=== PATIENT | female | born 1985 | race American Indian/Alaskan Native ===

== ENCOUNTER 2020-10-11 05:43 | Inpatient (IN) | payer MEDICAID ==
[~2020-10-11 05:43] MED LIST: BICITRA ORAL LIQD 30ML PO ONE; FAMOTIDINE 20 MG/2 ML INJ IV ONE; LACTATED RINGERS 1,000 ML IV SCH; METOCLOPRAMIDE 10 MG/2 ML INJ IV ONE
[2020-10-11] MEDS ORDERED: LACTATED RINGERS 2,000 ML ONE (05:57)
[2020-10-11 06:22] LABS: Basophils % (Auto) 0.3 % (0.0-1.8); Eosinophils # (Auto) 0.1 K/mm3 (0.0-0.4); Eosinophils % (Auto) 0.8 % (0.0-4.3); Hematocrit 26.3 % (30.3-42.9); Hemoglobin 8.4 gm/dl (10.1-14.3); Lymphocytes # (Auto) 3.6 K/mm3 (1.2-5.4); Lymphocytes % (Auto) 28.5 % (13.4-35.0); Mean Corpuscular HGB Conc 32 % (30-34); Mean Corpuscular Volume 75 fl (79-97); Monocytes # (Auto) 0.7 K/mm3 (0.0-0.8); Monocytes % (Auto) 5.8 % (0.0-7.3); Platelet Count 256 K/mm3 (140-440)
[2020-10-11] MEDS ORDERED: NalbUPHINE 10 MG/1 ML INJ IV PRN (06:48)
[2020-10-11] MEDS ORDERED: PROMETHAZINE 25 MG RECT SUPP PR PRN (06:48)
[2020-10-11] MEDS ORDERED: HYDROmorphone 1 MG/1 ML INJ IV PRN (06:48)
[2020-10-11] MEDS ORDERED: ONDANSETRON 4 MG/2 ML INJ IV PRN ×2 (06:48→12:00)
[2020-10-11] MEDS ORDERED: PROMETHAZINE 25 MG TAB PO PRN (06:48)
[2020-10-11] MEDS ORDERED: diphenhydrAMINE 50 MG/ML VIAL IV PRN (06:48)
[2020-10-11] MEDS ORDERED: NALOXONE 0.4 MG/1 ML INJ IV PRN ×2 (06:48→12:00)
--- NOTE | 2020-10-11 06:50 | Ultrasound Report ---
US OB limited INDICATION: Assess position. COMPARISON: None available. FINDINGS/IMPRESSION: A single live intrauterine is seen in transverse presentation with the head to the maternal left side. heart rate is 143 bpm. Signer Name: Tr Rodrigues MD Signed: 10/11/2020 6:46 AM Workstation Name: [id number]
[2020-10-11] MEDS ORDERED: ceFAZolin/Water 2 GM/20 ML 2 GM/20 ML SYRINGE IV NR (07:15)
--- NOTE | 2020-10-11 07:26 | Anesthesia Consultation ---
Anesthesia Consult and Med Hx Date of service: 10/11/20 - Airway Anesthetic Teeth Evaluation: Good ROM Head & Neck: Adequate Mental/Hyoid Distance: Adequate Mallampati Class: Class II Intubation Access Assessment: Probably Good - Pulmonary Exam CTA: Yes - Cardiac Exam Cardiac Exam: RRR - Pre-Operative Health Status ASA Pre-Surgery Classification: ASA2 Proposed Anesthetic Plan: Spinal Nerve Block: TAP - Pulmonary Hx Smoking: Yes (former) Hx Asthma: No COPD: No Hx Pneumonia: No Hx Sleep Apnea: No - Cardiovascular System Hx Hypertension: No Hx Heart Attack/AMI: No Hx Angina: No - Central Nervous System Hx Seizures: No Hx Psychiatric Problems: No - Endocrine Hx Renal Disease: No Hx End Stage Renal Disease: No Hx Hypothyroidism: Yes (takes synthroid BID) Hx Hyperthyroidism: No - Hematic Hx Anemia: Yes Hx Sickle Cell Disease: No - Other Systems Hx Alcohol Use: No
--- NOTE | 2020-10-11 07:26 | Anesthesia Day of Surgery ---
Anesthesia Day of Surgery - Day of Surgery Patient Examined: Yes Patient H&P Reviewed: Yes Patient is NPO: Yes Beta Blockers: No Cardiac Clearance: No Pulmonary Clearance: No Dorian's Test: N/A
[2020-10-11] MEDS ORDERED: BUPIVACAINE/PF (0.5%) 5 MG/1 ML 30 ML VIAL INFILTRATI ONE (07:27)
[2020-10-11] MEDS ORDERED: KETOROLAC 30 MG/1 ML INJ ONE (07:27)
[2020-10-11] MEDS ORDERED: ONDANSETRON 4 MG/2 ML INJ ONE (07:27)
[2020-10-11] MEDS ORDERED: dexAMETHasone 20 MG/5 ML VIAL ONE (07:28)
[2020-10-11] MEDS ORDERED: ceFAZolin/STERILE WATER 2 GM/20 ML SYRINGE IV ONE (07:35)
[2020-10-11] MEDS ORDERED: WATER FOR IRRIG STERILE 1,500 ML BOTTLE IR ONE (08:03)
[2020-10-11] MEDS ORDERED: SODIUM CHLORIDE 0.9% IRR 1,500 ML BOTTLE IR ONE (08:03)
[2020-10-11] MEDS ORDERED: OXYTOCIN DRIP 30 UNITS/500 ML BAG IV SCH ×2 (08:15→12:00)
[2020-10-11] MEDS ORDERED: SODIUM CHLORIDE 0.9% 500 ML 500 ML IV NR (08:20)
[2020-10-11] MEDS ORDERED: LACTATED RINGERS 1,000 ML ONE (08:36)
[2020-10-11] MEDS ORDERED: SODIUM CHLORIDE 0.9% 500 ML 500 ML ONE (08:36)
[2020-10-11] MEDS ORDERED: PHENYLEPHRINE/NS 1,000 MCG/10 ML SYRINGE (OR USE) IV ONE (08:36)
[2020-10-11] MEDS: methIMAzole 5 MG TAB PO SCH ×3 (09:18→23:36)
--- NOTE | 2020-10-11 09:18 | Progress Note ---
Regional Anesthesia Block - Regional Anesthesia Block Start Time: 08:58 Stop Time: 09:05 Performed By:: SHERRY FUENTES Procedure: Patient consented for TAP block for post surgical pain management. Patient identified, monitors placed, and time out performed. Mid axillary TAP identified bilaterally via ultrasound. Skin prepped bilaterally with [chlorhexidine] and [20g stimuplex] needle advanced to the TAP. 30ml [Marcaine 0.25% with 25mcg Pre cedex and Decadron 5mg] injected under ultrasound guidance on the [left] side. 30ml [Marcaine 0.25% with 25mcg Precedex and Decadron 5mg] injected under ultrasound guidance on the [right] side. Negative aspiration every 5mL, Patient tolerated the procedure well. No apparent complications seen.
--- NOTE | 2020-10-11 09:18 | Progress Note ---
Spinal Anesthesia Block - Spinal Anesthesia Block Start Time: 07:35 Stop Time: 07:45 Performed by:: SHERRY FUENTES Procedure: Spinal anesthesia block is being performed for [C/S]. H&P, labs have been reviewed. Patient's questions and concerns have been answered. Informed consent has been performed. Timeout has was performed. Patient in sitting position on side of bed. Sterile prep and drape was performed. 3 mL 1% lidocaine skin wheal at L [3]-L [4]. Needle introducer advanced. 25-gauge spinal needle advanced, [+] CSF [-] blood. [Marcaine 10mg and Precedex 5mcg] Spinal dose was given. All needles removed. Patient tolerated procedure well.
[2020-10-11] MEDS ORDERED: WITCH HAZEL/ GLYCERIN PAD TP PRN (11:30)
[2020-10-11] MEDS ORDERED: LANOLIN/ZINC/DIMETHICONE (LANSINOH) 7 GM TP PRN (12:00)
[2020-10-11] MEDS ORDERED: HYDROcodone/ACETAMINOPHEN 5-325 MG TAB PO PRN ×2 (12:00→16:36)
--- NOTE | 2020-10-11 13:11 | History and Physical Report ---
History of Present Illness Date of examination: 10/05/20 History of present illness: Is a patient transferred to our practice at 38 weeks for first visit to discover the the fetus was in breech presentation. Patient's course has been complicated by her lack of care in the last 2 months with her moving to this area. Initially the patient did not inform me about her hyper thyroidism that was diagnosed during her this was discovered when reviewing her records from her previous physician. Patient was noncompliant with her follow- up visit on last week. Is here today for delivery at 38 weeks with a malpresentation. Menstrual History Regularity: regular Menses every: 28 days Duration: 3 LMP: 01/12/2020 LMP reliability: definite LMP character: normal test type: urine test Date: 02/04/2020 Planned ? yes EDC Calculations LMP: 10/18/2020 EDC Confirmation: 10/18/2020 G Past History : 2 Term Births: 1 Premature Births: 0 Living Children: 1 Para: 1 Mult. Births: 0 Prev : 0 Aborta: 0 Elect. Ab: 0 Spont. Ab: 0 Ectopics: 0 # 1 Delivery date: 08/05/2010 Weeks Gestation: 41 Delivery type: Hours of labor: 16 Delivery location: [place] Sex: Male weight: 7-12 Name: Anupam Past Medical History: Hyperthyroidism Past Surgical History: Appendectomy (2005) ruptured laparotomy Family History Summary: Other Family Member - Has No Family History of Ovarvian Cancer - Entered On: 10/05/2020 Other Family Member - Has No Family History of Colon Cancer - Entered On: 10/05/2020 Other Family Member - Has No Family History of Breast Cancer - Entered On: 10/05/2020 Other Family Member - Has Family History of Hypertension - Entered On: 10/05/2020 Social History: Marital Status: Single Children: 1 Occupation: Unemployed [employer] Smoking History: Patient has never smoked. 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 Infection History Hx of STD: none HIV Risk Eval: no Hepatitis B Risk Eval: low risk Personal hx. of genital herpes: no Genetic History Congenital Heart Defect: Mom: no Dad: no Charlotte Disease: Mom: no Dad: no Thalassemia Mom: no Dad: no Neural Tube Defect Mom: no Dad: no Down's Syndrome Mom: no Dad: no Prince-Sachs Mom: no Dad: no Sickle Cell Disease/Trait Mom: yes Dad: no Comments: Trait Hemophilia Mom: no Dad: no Muscular Dystrophy Mom: no Dad: no Cystic Fibrosis Mom: no Dad: no Ingram Chorea Mom: no Dad: no Mental Retardation Mom: no Dad: no Fragile X Mom: no Dad: no Other Genetic/Chromosomal Disorder Mom: no Dad: no Child w/other defect Mom: no Dad: no Enviromental Exposures Xray Exposure: no Medication, drug, or alcohol use since LMP: no Exposure to Cat Liter: no Current Allergies (reviewed today): No known allergies Past History Past Medical History: thyroid disease, other (SEE HPI) Past Surgical History: appendectomy, other (SEE HPI) WORSHIP DIRECTOR History: other (SEE HPI) Social history: full code, other (SEE HPI) - Obstetrical History Expected Date of Delivery: 10/18/20 Actual Gestation: 39 Week(s) 0 Day(s) : 2 Para: 1 Hx # Term Pregnancies: 1 Number of Pregnancies: 0 Spontaneous Abortions: 0 Induced : 0 Number of Living Children: 1 Medications and Allergies Allergies Allergy/AdvReac Type Severity Reaction Status Date / Time No Known Allergies Allergy Verified 10/11/20 07:06 Home Medications Medication Instructions Recorded Confirmed Last Taken Type Ferrous Sulfate [Feosol 325 MG tab] 325 mg PO BID #60 tablet 10/11/20 Unknown Rx Ibuprofen [Motrin] 800 mg PO TID PRN #30 tablet 10/11/20 Unknown Rx Synthroid 1 tab PO BID 10/11/20 10/11/20 1 Day Ago History ~10/10/20 methIMAzole [Tapazole] 5 mg PO Q8H #90 tab 10/11/20 Unknown Rx oxyCODONE /ACETAMINOPHEN [Percocet 1 - 2 tab PO Q6HR PRN #20 tablet 10/11/20 Unknown Rx 5/325 mg] Review of Systems Constitutional: other (SEE HPI) - Physical Exam Breasts: Positive: normal Cardiovascular: Regular rate Lungs: Positive: Clear to auscultation Abdomen: Positive: normal appearance, soft, other (Surgical scar) Genitourinary (Female): Positive: normal external genitalia Vagina: Positive: normal moisture Uterus: Positive: enlarged - Obstetrical FHR: auscultation normal Results Result Diagrams: 10/11/20 06:08 All other labs normal. Assessment and Plan - Patient Problems (1) Hyperthyroidism affecting in third trimester Current Visit: Yes Status: Acute Plan to address problem: Patient patient has not been forthcoming with this diagnosis. Unsure of is just confusion on her part but she also did not tell anesthesia about her diagnosis at the time of their preop assessment. Then after the room she was approached with the diagnosis from the anesthesia staff she told him she had been on Synthroid even though her records clearly show she had been on Tapazole. We will monitor the patient closely postop. (2) Insufficient care in third trimester Current Visit: Yes Status: Acute Plan to address problem: Patient last visit previous location was in July and then she is only had 1 visit in my office last week prior to this admission for delivery. (3) Transverse lie Current Visit: Yes Status: Acute Qualifiers: Fetus number: single or unspecified fetus Qualified Code(s): O32.2XX0 - Maternal care for transverse and oblique lie, not applicable or unspecified Plan to address problem: As stated in her HPI patient was breech presentation office 1 week ago today the preoperative ultrasound showed infant to be in a transverse lie. Again discussed indication for operative delivery. Patient informed the risks of the surgery include bleeding possibly bleeding heavy enough to require blood tra nsfusion, infection possible damage to bowel bladder ureter. All questions answered. Patient agrees to proceed (4) Noncompliance with medication regimen Current Visit: Yes Status: Acute Plan to address problem: Patient did not follow-up for prescription given in office in 1 week. We will restart her Tapazole postop. Will observe the patient in labor and delivery post operatively due to risk from her hyperthyroidism.
--- NOTE | 2020-10-11 14:32 | Post Anesthesia Evaluation ---
- Post Anesthesia Evaluation Patient Participated: Yes Airway Patent: Yes Stable Respiratory Function: Yes Nausea/Vomiting: No Temp > 96.8F: Yes Pain Manageable: Yes Adequeate Hydration: Yes Anesthesia Complications: No Block Receding Appropriately: Yes Patient on Ventilator: No
[2020-10-11 14:39] LABS: Hematocrit 24.8 % (30.3-42.9); Hemoglobin 8.1 gm/dl (10.1-14.3)
[2020-10-11] MEDS: PRENATAL VIT27-FE FUMARATE-FOLIC ACID VIT TAB PO SCH (16:10)
[2020-10-11] MEDS: KETOROLAC 30 MG/1 ML INJ IV SCH ×2 (16:10→23:17)
[2020-10-11] MEDS: ceFAZolin/NS 1 GM/50 ML 1 GM/50 ML BAG IV SCH ×2 (16:11→23:17)
[2020-10-11] MEDS: D5W/LACTATED RINGERS 1,000 ML IV SCH ×2 (16:11→23:16)
--- NOTE | 2020-10-11 17:34 | Event Note ---
Date: 10/11/20 SUBJECTIVE: Patient is awake doing well holding baby with out complaints OBJECTIVE: Vital signs stable afebrile Abdomen soft hematocrit 28% ASSESSMENT: Patient doing well postop, discussed with the patient again the importance of being compliant with her thyroid medication PLAN: 1. We will move the patient to mother-baby continue to monitor
[2020-10-11 21:16] LABS: Hematocrit 23.2 % (30.3-42.9); Hemoglobin 7.5 gm/dl (10.1-14.3)
[2020-10-11] MEDS ORDERED: MAGNESIUM HYDROXIDE (MOM) ORAL LIQD UDC PO PRN (22:00)
[2020-10-12 01:11] LABS: Hematocrit 20.7 % (30.3-42.9); Hemoglobin 6.9 gm/dl (10.1-14.3)
[2020-10-12] MEDS ORDERED: SODIUM CHLORIDE 0.9% 500 ML 500 ML IV ONE (01:46)
--- NOTE | 2020-10-12 02:04 | Event Note ---
Date: 10/12/20 (H/H 6.9/20.7) Received call from RN regarding patient's H/H resulting as 6.9/.7. Consulted with Dr. Palmer. Will order 1 unit of PRBC's to be transfused and H/H to be drawn 4 hours after unit completed. RN aware of orders being placed.
[2020-10-12] MEDS ORDERED: ACETAMINOPHEN 500 MG TAB PO ONE (02:54)
[2020-10-12] MEDS ORDERED: diphenhydrAMINE 25 MG CAP PO ONE (02:55)
[2020-10-12] MEDS: methIMAzole 5 MG TAB PO SCH ×4 (05:16→21:45)
[2020-10-12] MEDS: KETOROLAC 30 MG/1 ML INJ IV SCH (05:16)
--- NOTE | 2020-10-12 06:21 | Progress Note ---
Assessment and Plan - Patient Problems (1) delivery delivered Onset Date: ~10/11/20 Current Visit: Yes Status: Acute Plan to address problem: Pt in good spirits this AM A&O X 3 Caring for NB daughter. Pt is bottle feeding. VSS FF below umb Lochia small Incision D&I. Post transfusion H&H pending. Doing well s/p section P: continue pathway Advance diet and activity as tolerated. (2) Anemia Onset Date: ~10/12/20 Current Visit: Yes Status: Acute Qualifiers: Anemia type: iron deficiency Iron deficiency anemia type: unspecified iron deficiency Qualified Code(s): D50.9 - Iron deficiency anemia, unspecified Plan to address problem: Pt's admission H&H 01/20 and drop after surgery to H&H 11/14 Decision was made to transfuse 2 units PRC That was completed this AM Next H&H is due @ 0900. Pt is not symptomatic Voicing no c/o dizziness or being lightheaded. Will continue to monitor Subjective - Subjective Date of service: 10/12/20 (no c/o voiced) Principal diagnosis: Day #1 s/p primary section BREECH; 2uPRC completed Patient reports: appetite normal, voiding normally, pain well controlled, ambulating normally : doing well Objective - Vital Signs Latest vital signs: Vital Signs Temp Pulse Resp BP BP Pulse Ox 10/12/20 05:10 98.3 F 90 18 112/59 99 10/12/20 04:30 98.1 F 81 18 119/59 98 10/12/20 04:00 98.1 F 89 18 112/58 98 10/12/20 03:30 98.2 F 91 H 18 120/63 98 10/12/20 03:00 98.2 F 96 H 18 113/57 99 10/12/20 02:45 98.2 F 81 18 121/61 99 10/12/20 00:06 97.8 F 83 18 112/51 98 10/11/20 20:16 97.9 F 78 20 111/70 98 10/11/20 18:15 98.3 F 80 16 117/55 98 10/11/20 17:31 59 L 82 L 10/11/20 17:30 90 97 10/11/20 17:28 86 110/59 05/17/21 17:25 97 H 98 051721 17:19 91 H 96 051721 17:16 101 H 109/67 0517 17:14 88 97 051721 17:09 90 96 051721 17:04 96 H 99 051721 16:59 90 98 051721 16:58 98.4 F 051721 16:54 85 98 051721 16:49 89 100 051721 16:44 86 98 051721 16:39 81 97 051721 16:34 88 97 051721 16:29 82 98 051721 16:28 98 H 113/68 051721 16:24 85 98 051721 16:19 91 H 99 17 16:14 88 99 1721 16:13 99 H 86 17 16:09 100 H 99 10/11/20 16:04 111 H 97 10/11/20 16:00 84 94 1721 15:59 85 95 051721 15:58 80 119/59 051721 15:54 75 98 051721 15:49 76 97 051721 15:48 82 L 10/11/20 15:34 76 125/58 051721 15:25 86 96 051721 15:20 85 94 21 15:15 79 97 051721 15:10 78 98 10/11/20 15:06 96 H 92 10/11/20 15:05 76 98 051721 15:00 75 97 051721 14:59 73 131/57 051721 14:55 85 96 0517/21 14:53 84 93 0517/21 14:50 74 97 0517/21 14:45 74 97 0517/21 14:40 76 98 051721 14:35 76 100 0517/21 14:30 80 97 0517/21 14:25 84 96 0517/21 14:20 89 97 0517/21 14:16 81 93 051721 14:15 79 98 051721 14:10 68 97 0517/21 14:05 78 97 05/17/21 14:00 75 97 05 13:55 85 97 05 13:52 80 94 10/11/20 13:50 83 96 10/11/20 13:45 82 98 10/11/20 13:40 51 L 93 10/11/20 13:39 57 L 89 10/11/20 13:35 72 98 10/11/20 13:30 73 97 10/11/20 13:25 75 96 10/11/20 13:20 75 97 10/11/20 13:15 88 96 10/11/20 13:10 73 97 10/11/20 13:09 85 90 10/11/20 13:08 97.7 F 10/11/20 13:05 79 98 10/11/20 13:00 81 97 10/11/20 12:55 89 96 10/11/20 12:52 84 90 10/11/20 12:50 82 96 10/11/20 12:47 76 93 10/11/20 12:45 72 96 10/11/20 12:42 57 L 92 10/11/20 12:40 75 97 10/11/20 12:35 76 98 10/11/20 12:30 82 97 10/11/20 12:25 85 113/70 97 10/11/20 12:21 83 94 10/11/20 12:20 79 95 10/11/20 12:16 68 94 10/11/20 12:15 76 95 10/11/20 12:10 79 95 10/11/20 12:05 71 96 10/11/20 12:00 71 96 10/11/20 11:55 72 96 05 11:47 84 98 10/11/20 11:42 79 99 05 11:40 84 92 05 11:37 71 97 10/11/20 11:32 67 97 05 11:27 71 98 05 11:22 75 98 0521 11:17 68 98 051721 11:12 66 106/57 98 051721 11:11 65 90 0517 11:07 68 97 05 11:02 70 98 05 10:57 67 98 05 10:52 75 98 05/17/21 10:47 67 99 10/11/20 10:42 69 99 10/11/20 10:37 68 99 10/11/20 10:32 65 111/70 99 10/11/20 10:30 97.4 F L 10/11/20 10:05 68 17 99/55 98 10/11/20 09:50 97.4 F L 66 17 102/56 98 10/11/20 09:35 97.4 F L 67 17 96/48 98 10/11/20 09:20 69 17 101/57 99 10/11/20 09:10 67 18 103/54 99 10/11/20 09:05 97.5 F L 10/11/20 09:00 83 16 90/37 97 10/11/20 08:55 97.5 F L 10/11/20 07:27 117 H 98 10/11/20 07:22 101 H 99 10/11/20 07:17 104 H 99 10/11/20 07:12 100 H 100 10/11/20 07:07 103 H 98 10/11/20 07:02 100 H 98 10/11/20 06:57 102 H 98 10/11/20 06:52 95 H 98 10/11/20 06:47 109 H 98 10/11/20 06:42 95 H 98 10/11/20 06:37 108 H 98 10/11/20 06:32 101 H 98 10/11/20 06:22 89 98 10/11/20 06:20 98.0 F 16 10/11/20 06:17 94 H 98 Intake and Output 10/11/20 10/11/20 10/12/20 14:59 22:59 06:59 Intake Total 2049 170 885.417 Output Total 750 1675 300 Balance 1300 -1505 585.417 Intake: IV 1800 50 885.417 ANCEF/NS 1 GM/50 ML 1 gm 50 In 50 ml @ 100 mls/hr IV Q8H LALO Rx#:[id number] D5lr 1,000 ml @ 125 mls/ 885.417 hr IV DIRECT LALO Rx#: [id number] Oral 120 Blood Product 250 0 Leukoreduced Red Blood 0 Cells Unit [id number] Output: Urine 750 1675 300 Indwelling Catheter 250 1000 Uretheral (Gayle) 200 600 Void 75 300 Other: Total, Intake Amount 120 Total, Output Amount 250 75 200 # Voids Void 1 1 Estimated Blood Loss 1,800 - Exam Breasts: Present: normal Cardiovascular: Present: Regular rate Lungs: Present: Normal air movement Abdomen: Present: normal appearance, soft Uterus: Present: normal, fundal height below umbilicus Extremities: Present: normal Deep Tendon Reflex Grade: Normal +2 Incision: Present: normal, dry, intact - Labs Labs: Abnormal lab results 10/11/20 10/11/20 10/11/20 Range/Units 06:08 06:08 14:15 WBC 12.5 H (4.5-11.0) K/mm3 RBC 3.50 L (3.65-5.03) M/mm3 Hgb 8.4 L 8.1 L (10.1-14.3) gm/dl Hct 26.3 L 24.8 L (30.3-42.9) % MCV 75 L (79-97) fl MCH 24 L (28-32) pg RDW 17.0 H (13.2-15.2) % Seg Neutrophils # 8.1 H (1.8-7.7) K/mm3 Crossmatch See Detail 10/11/20 10/12/20 Range/Units 20:52 00:50 WBC (4.5-11.0) K/mm3 RBC (3.65-5.03) M/mm3 Hgb 7.5 L 6.9 L (10.1-14.3) gm/dl Hct 23.2 L 20.7 L (30.3-42.9) % MCV (79-97) fl MCH (28-32) pg RDW (13.2-15.2) % Seg Neutrophils # (1.8-7.7) K/mm3 Crossmatch
[2020-10-12] MEDS ORDERED: MEASLES, MUMPS & RUBELLA 12,500 UNIT/0.5 ML VACCINE SUB-Q ONE (08:46)
[2020-10-12 09:11] LABS: Hemoglobin 8.2 gm/dl (10.1-14.3)
[2020-10-12] MEDS: FERROUS SULFATE 325 MG TAB PO SCH (10:03)
[2020-10-12] MEDS: PRENATAL VIT27-FE FUMARATE-FOLIC ACID VIT TAB PO SCH (10:13)
[2020-10-12] MEDS: IBUPROFEN 800 MG TAB PO PRN (21:45)
[2020-10-13] MEDS: IBUPROFEN 800 MG TAB PO PRN (05:29)
[2020-10-13] MEDS: methIMAzole 5 MG TAB PO SCH (05:29)
[2020-10-13] MEDS: PRENATAL VIT27-FE FUMARATE-FOLIC ACID VIT TAB PO SCH (09:18)
[2020-10-13] MEDS: FERROUS SULFATE 325 MG TAB PO SCH (09:18)
--- NOTE | 2020-10-13 11:06 | Discharge Summary ---
Providers - Providers Date of Admission: 10/11/20 05:43 Date of discharge: 10/13/20 (pt requests discharge home today) Attending physician: ABI SOSA 10/11/20 11:28 Consult to Client Care Specialist [CONS] Routine Reason For Exam: Primary care physician: ABI SOSA Hospitalization Reason for admission: section Delivery: Procedure: primary low transverse Episiotomy: none Laceration: none Incision: normal, dry, intact Other procedures: none complications: transfusion Discharge diagnosis: IUP at term delivered [place] baby: female Disposition: DC-01 TO HOME OR SELFCARE Plan - Discharge Medications Prescriptions: Ferrous Sulfate [Feosol 325 MG tab] 325 mg PO BID #60 tablet Ibuprofen [Motrin] 800 mg PO TID PRN #30 tablet PRN Reason: Pain oxyCODONE /ACETAMINOPHEN [Percocet 5/325 mg] 1 - 2 tab PO Q6HR PRN #20 tablet PRN Reason: Pain methIMAzole [Tapazole] 5 mg PO Q8H #90 tab - Provider Discharge Summary Activity: routine, no sex for 6 weeks, no heavy lifting 4 weeks, no strenuous exercise Diet: routine Instructions: routine Additional instructions: [] Smoking cessation referral if applicable(refer to patient education folder for contact #) [] Refer to [facility] Booklet Call your doctor immediately for: * Fever > 100.5 * Heavy vaginal bleeding ( >1 pad per hour) * Severe persistent headache * Shortness of breath * Reddened, hot, painful area to leg or breast * Drainage or odor from incision. * Keep incision clean and dry at all times and follow doctor's instructions regarding bathing/showering Congratulations!! Please call [phone] to schedule an appointment in one week with our office for your incision check. - Follow up plan Follow up: ABI SOSA MD [Primary Care Provider] - 7 Days Forms: [facility] Discharge Summary
[2020-10-13 12:05] VITALS: BP 135/77
--- NOTE | 2020-10-22 12:16 | Operative Report ---
Operative Report Operative Report: Date of procedure: October 11, 2020 Pre-operative diagnosis: Intrauterine at 39 weeks with insufficient care in third trimester and fetus in transfer lie, hyperthyroidism and anemia Post-operative diagnosis: Same plus acute blood loss Procedure name(s): Primary low transverse section, intraoperative blood transfusion Surgeon: Wesley Palmer MD Lumber Marker: Brittnee Atkinson CST Anesthesia: Spinal EBL: 1800 cc Complications: None Findings: Normal uterus tubes and ovaries, anterior placenta. Female infant in backdown transverse position. Weight 7 pounds 0 ounces Apgars 8 at 1 minute 9 at 5 minutes Specimen(s): None Procedure: The patient was brought to the operating room. A spinal was placed without any complications. She was then placed in left lateral tilt. Prepped and draped in the usual sterile manner. After testing for adequate anesthesia l evel, a Pfannenstiel incision was made. This incision was taken down to the fascia. The fascia was then nicked in the midline. This incision was extended out laterally with Espino scissors. The fascia was then sharply and bluntly from the underlying rectus muscles. The rectus muscles were bluntly and sharply . The peritoneum was then entered with the linderman operator's fingers. This incision was spread vertically with care not to damage the bladder below. Sai retractor was then placed. The bladder flap was then formed sharply and bluntly with Metzenbaum scissors. A transverse incision was made through a very vascular lower uterine segment. This incision was extended laterally with the operators fingers. The anterior placenta was then approach with bleeding most likely causing the increase blood loss during the procedure. The amniotic sac was then entered bluntly with the linderman operator's fingers. The infant was back down transverse lie. Infant position was then converted to a footling breech. Bilateral feet were then delivered into the breech was reach. After raising the breech, the upper extremities were then delivered by sweeping over the shoulders then flexing the elbows then extending the lower arm. After delivering the upper extremities, the after coming head was then delivered safely. The infant was bulb suctioned on the mother's abdomen. Cord was double clamped and cut. The was then passed to the nursery personnel who were in attendance. The above scores were given by the nursery personnel. The placenta was then bluntly removed. The uterus was then externalized and wiped clean the remaining products. The uterine incision was closed in layers. The first incision was closed in a locking manner using 0 Vicryl. This was followed by imbricating stitch also with 0 Vicryl. This closure was hemostatic. The bladder flap was copiously irrigated and found to be hemostatic. The pelvis was copiously irrigated and found to be hemostatic. The uterus was then placed back to the patient's abdomen. The retractors were removed. The rectus muscles were inspected and found to be hemostatic. The fascia was then closed in a running manner using 0 Vicryl. This incision was hemostatic irrigation Bovie. The skin was reapproximated with 4-0 Vicryl subcuticularly. The patient tolerated procedure well. Her urine was clear. The was admitted to the well baby nursery. The patient was accompanied to recovery room in good condition. Instrument count correct x3.
== END 2020-10-13 12:30 | disposition home or self-care (01) | DRG 765 ==
LOC: APU 05:43 → LD 10:32 → OB 18:25
PROVIDERS: ADMIT Obstetrics & Gynecology; ATTEND Obstetrics & Gynecology
PROC: 10D00Z1 Extraction of Products of Conception, Low, Open Approach (ICD-10-PCS; principal; 2020-10-11)
PROC: 30233N1 Transfusion of Nonautologous Red Blood Cells into Peripheral Vein, Percutaneous Approach (ICD-10-PCS; 2020-10-12)
PROC: 3E0234Z Introduction of Serum, Toxoid and Vaccine into Muscle, Percutaneous Approach (ICD-10-PCS; 2020-10-12)
DX: O99.284 Endocrine, nutritional and metabolic diseases complicating childbirth (principal); D62 Acute posthemorrhagic anemia; O32.2XX0 Maternal care for transverse and oblique lie, not applicable or unspecified; E05.90 Thyrotoxicosis, unspecified without thyrotoxic crisis or storm; D50.8 Other iron deficiency anemias; Z20.822 Contact with and (suspected) exposure to COVID-19; Z3A.39 39 weeks gestation of pregnancy; Z82.49 Family history of ischemic heart disease and other diseases of the circulatory system; Z37.0 Single live birth; Z90.49 Acquired absence of other specified parts of digestive tract; Z79.899 Other long term (current) drug therapy; Z91.14 Patient's other noncompliance with medication regimen; Z23 Encounter for immunization; O90.81 Anemia of the puerperium
CPT/HCPCS: 36415; 76815; 85014; 85018; 85025; 86850; 86900; 86901; 86920; 90471; 90707; 99211; G0378; G0463; J0690; J1100; J1885; J2370; J2405; J2765; J3490; J7040; J7120; J7121; P9016; U0003